=== PATIENT | male | born 1975 | race Two or more races ===

== ENCOUNTER 2023-12-09 11:27 | Emergency (ER) | payer BC, SELFPAY ==
[2023-12-09 11:40] VITALS: BP 138/86; PULSE 71; RESP 16; TEMP 36.7; O2SAT 100
--- NOTE | 2023-12-09 11:45 | ED.GENADULT ---
HPI - General Adult General Chief complaint: Unspecified Stated complaint: Trouble Sleeping and Focusing Time Seen by Provider: 12/09/23 11:46 Source: patient Mode of arrival: ambulatory Limitations: no limitations History of Present Illness HPI narrative: 48 y/o male presented for concern of trouble sleeping, trouble focusing, and sadness for several weeks following his father's 3 months ago. Pt is a single father, has a lot of responsibilities, and says he cannot focus at work and has made a few mistakes. He continues to use his bereavement for his job. Denies SI/HI. Pt does not want to try medication, he states he just wants to feel better. Related Data Home Medications Medication Instructions Recorded Confirmed No Home Medications 12/09/23 12/09/23 Allergies Allergy/AdvReac Type Severity Reaction Status Date / Time No Known Allergies Allergy Verified 12/09/23 11:38 Review of Systems Review of Systems: CONSTITUTIONAL: Denies body aches, fever, chills, or sweats. EYES: Denies visual changes, redness, or discharge. ENT: Denies rhinorrhea, congestion, sore throat, or otalgia. CARDIOVASCULAR: Denies chest pain, palpitations, or edema. RESPIRATORY: Denies cough or dyspnea. GASTROINTESTINAL: Denies abdominal pain, nausea, vomiting, or diarrhea. GENITOURINARY: Denies dysuria or hematuria. SKIN: Denies rash, itching, or wounds. MUSCULOSKELETAL: Denies back pain, joint pain, or myalgia. NEUROLOGIC: Denies headache, numbness, tingling, or weakness. PSYCH: reports depression All systems reviewed & are unremarkable except as noted in HPI and below PMFSH Past Medical History Medical History (Updated 12/09/23 @ 12:21 by Kerri Newell APRN) No pertinent past medical history Social History Social History Smoking status: Never smoker Alcohol intake: current Comments At time of signature, I have reviewed and agree with nursing past medical, surgical, social and family history unless otherwise noted. Please see nursing chart for further information. There is no relevant family history pertinent to the presenting complaint Exam Narrative: GENERAL: Well-appearing, well-nourished, and in no acute distress. HEAD: Normocephalic, atraumatic. EYES: EOMI. No redness or drainage. Conjunctivae normal. ENT: Mucous membranes pink and moist. NECK: Normal AROM. CHEST: No respiratory distress. Clear to auscultation. HEART: Regular rate and rhythm. No murmur appreciated. Normal peripheral pulses. EXTREMITIES: Normal range of motion. No edema. SKIN: Warm, dry, Capillary refill normal. Normal skin turgor. NEURO: No focal deficits. Alert and oriented x3. PSYCH: Normal affect. Course Course Emergency Course: Patient is aware of diagnosis, understands and agrees to treatment plan. Anticipatory guidance given. Patient agrees to follow-up as directed and is aware of reasons to seek care at the emergency department. Portions of this record may have been created with voice recognition software Level of Care: Express Care Visit Vital Signs Vital signs: Vital Signs Temperature 98.1 F 12/09/23 11:40 Pulse Rate 71 12/09/23 11:40 Respiratory Rate 16 12/09/23 11:40 Blood Pressure 138/86 12/09/23 11:40 Pulse Oximetry 100 12/09/23 11:40 Oxygen Delivery Room Air 12/09/23 11:40 Temperature 98.1 F 12/09/23 11:40 Pulse Rate 71 12/09/23 11:40 Respiratory Rate 16 12/09/23 11:40 Blood Pressure 138/86 12/09/23 11:40 Pulse Oximetry 100 12/09/23 11:40 Oxygen Delivery Room Air 12/09/23 11:40 Medical Decision Making MDM Narrative Medical decision making narrative: Pt presented for c/o trouble focusing, sadness following recent loss of father PHQ-9 score =15 Pt is not seeking medication. He is 'wanting to feel better.' advised supportive measures and provided education on grief. Pt plans to establish with
== END 2023-12-09 12:25 | disposition home or self-care (01) ==
PROVIDERS: Emergency Provider Nurse Practitioner Family
DX: F43.20 Adjustment disorder, unspecified (principal)
CPT/HCPCS: 99211; G0463